=== PATIENT | male | born 1965 | race Caucasian/White ===

== ENCOUNTER 2017-02-08 22:29 | Inpatient (IN) | payer MEDICAID, MEDICARE ==
[~2017-02-08] VITALS: Ht 175.3 cm; Wt 123.9 kg
[2017-02-08] MEDS ORDERED: ONDANSETRON 2MG/ML, 2ML ONE (22:51)
[2017-02-08] MEDS ORDERED: MORPHINE SULFATE 4 MG/ML, 1ML ONE (22:51)
[2017-02-08] MEDS ORDERED: ONDANSETRON 2MG/ML, 2ML IVPush ONE (23:00)
[2017-02-08] MEDS ORDERED: MORPHINE SULFATE 4 MG/ML, 1ML IVPush PRN (23:00)
[2017-02-08] MEDS ORDERED: SODIUM CHLORIDE 0.9% 1,000ML IVBOLUS ONE (23:00)
[2017-02-08 23:56] LABS: BASOPHILS # (AUTO) 0.02 x10^3/uL (0-0.1); BASOPHILS % (AUTO) 0 % (0-1); EOSINOPHILS # (AUTO) 0.02 x10^3/uL (0-0.4); EOSINOPHILS % (AUTO) 0 % (1-7); LYMPHOCYTES # (AUTO) 0.92 x10^3/uL (1-3.4); LYMPHOCYTES % (AUTO) 6 % (22-44); MD NO; MEAN CORPUSCULAR HEMOGLOBIN 29.4 pg (27.5-34.5); MEAN CORPUSCULAR HGB CONC 33.4 g/dL (33.2-36.2); MEAN CORPUSCULAR VOLUME 88.1 fL (81-97); MEAN PLATELET VOLUME 8.2 fL (7.4-10.4); MONOCYTES # (AUTO) 0.51 x10^3/uL (0.2-0.8); MONOCYTES % (AUTO) 3 % (2-9); NEUTROPHILS # (AUTO) 14.06 x10^3/uL (1.8-6.8); NEUTROPHILS % (AUTO) 91 % (42-75); PLATELET COUNT 284 x10^3/uL (130-400); RED BLOOD COUNT 5.64 x10^6/uL (4.38-5.82); RED CELL DISTRIBUTION WIDTH 16.6 % (9.4-14.8)
[2017-02-09 00:05] LABS: ALBUMIN 3.6 g/dL (3.4-5.0); ANION GAP 16 mmol/L (5-15); CALCIUM 8.7 mg/dL (8.5-10.1); CHLORIDE 104 mmol/L (98-107)
[2017-02-09 00:11] LABS: ALANINE AMINOTRANSFERASE 115 U/L (12-78); ALKALINE PHOSPHATASE 174 U/L (45-117); BILIRUBIN,TOTAL 0.7 mg/dL (0.2-1.0); CREATININE 0.74 mg/dL (0.7-1.3); TROPONIN I < 0.015 ng/mL (0.000-0.045)
[2017-02-09] MEDS ORDERED: OMNIPAQUE 350 MG/ML, 100ML BOTTLE ONE (00:39)
[2017-02-09 01:02] LABS: MICROSCOPIC NOT IND
[2017-02-09 01:04] LABS: CULTURE INDICATED? NO
[2017-02-09] MEDS ORDERED: CEFOTETAN PMX 1GM/50ML 50 ML ONE (01:16)
[2017-02-09] MEDS ORDERED: SODIUM CHLORIDE 0.9% 1,000 ML IV ONE (01:20)
[2017-02-09] MEDS ORDERED: morphine SULFATE 10 MG/ML, 1ML ONE (01:27)
[2017-02-09] MEDS ORDERED: MORPHINE SULFATE 4 MG/ML, 1ML IVPush PRN (01:30)
[2017-02-09] MEDS ORDERED: ONDANSETRON 2MG/ML, 2ML IVPush PRN ×3 (01:30→04:00)
[2017-02-09] MEDS ORDERED: CEFOTETAN PMX 1GM/50ML 50 ML IV ONE (01:30)
[2017-02-09] MEDS ORDERED: EPINEPHRINE 1 MG/ML, 1ML ONE (01:55)
[2017-02-09] MEDS ORDERED: BUPIVACAINE/PF 0.5% ONE (01:55)
[2017-02-09] MEDS ORDERED: LIDOCAINE GEL 2%, 5ML ONE (02:11)
[2017-02-09] MEDS ORDERED: GLYCOPYRROLATE 0.2MG/1ML, 5ML ONE (02:15)
[2017-02-09] MEDS ORDERED: PROPOFOL 10 MG/ML, 20ML ONE (02:15)
[2017-02-09] MEDS ORDERED: DEXAMETHASONE 4 MG/ML, 1ML ONE (02:15)
[2017-02-09] MEDS ORDERED: CEFAZOLIN 1,000 MG ONE (02:15)
[2017-02-09] MEDS ORDERED: FENTANYL PF 250 MCG/5ML ONE (02:15)
[2017-02-09] MEDS ORDERED: ROCURONIUM 10 MG/ML,10ML ONE (02:15)
[2017-02-09] MEDS ORDERED: SUCCINYLCHOLINE 20 MG/ML, 10ML ONE (02:15)
[2017-02-09] MEDS ORDERED: NEOSTIGMINE 1 MG/ML, 10ML ONE (02:15)
[2017-02-09] MEDS ORDERED: ONDANSETRON 2MG/ML, 2ML ONE (02:15)
[2017-02-09] MEDS ORDERED: KETOROLAC 30 MG/1 ML ONE (02:17)
[2017-02-09] MEDS ORDERED: LORazepam 2 MG/ML, 1ML IVPush PRN (02:30)
[2017-02-09] MEDS ORDERED: MEPERIDINE/PF 25MG/0.5ML IVPush PRN (02:30)
[2017-02-09] MEDS ORDERED: ACETAMINOPHEN 325 MG TABLET PO PRN (02:30)
[2017-02-09] MEDS ORDERED: PROMETHAZINE 25 MG/ML, 1ML IV PRN (02:30)
[2017-02-09] MEDS ORDERED: METOCLOPRAMIDE 5 MG/ML, 2ML IV PRN (02:30)
[2017-02-09] MEDS ORDERED: ALBUTEROL/IPRATROPIUM 2.5MG/0.5MG, 3 ML NPPB PRN (02:30)
[2017-02-09] MEDS ORDERED: MIDAZOLAM 1 MG/ML, 2ML IV PRN (02:30)
[2017-02-09] MEDS ORDERED: LABETALOL 5MG/ML, 20ML IV PRN (02:30)
[2017-02-09] MEDS ORDERED: hydrALAzine 20 MG/ML, 1ML IV PRN (02:30)
[2017-02-09] MEDS ORDERED: OXYcodone 5 MG/5 ML ORAL.SOL UDC PO PRN (02:30)
[2017-02-09] MEDS ORDERED: DIAZEPAM 5 MG/ML, 2ML IVPush PRN (02:30)
[2017-02-09] MEDS ORDERED: HYDROmorphone 1 MG/ML, 1ML IV PRN (02:30)
[2017-02-09] MEDS ORDERED: METRONIDAZOLE PMX 500MG/100ML 100 ML ONE (03:00)
[2017-02-09] MEDS ORDERED: BUPIVACAINE/PF-EPI 0.5% 1:200K INFIL ONE (03:05)
[2017-02-09] MEDS ORDERED: FENTANYL PF 100 MCG/2ML ONE ×2 (03:37→04:46)
[2017-02-09] MEDS ORDERED: LABETALOL 5MG/ML, 20ML IVPush PRN (04:00)
[2017-02-09] MEDS ORDERED: ENALAPRILAT 1.25 MG/ML, 2ML IVPush PRN (04:00)
[2017-02-09] MEDS ORDERED: PROMETHAZINE 25 MG/ML, 1ML IM PRN (04:00)
[2017-02-09] MEDS ORDERED: DIAZEPAM 5 MG/ML, 10ML VIAL IV ONE (04:00)
[2017-02-09] MEDS ORDERED: LABETALOL 5MG/ML, 20ML ONE (04:03)
[2017-02-09] MEDS ORDERED: MEPERIDINE/PF 50 MG/ML ONE (04:03)
[2017-02-09] MEDS: FENTANYL PF 100 MCG/2ML IV PRN ×2 (04:48→04:55)
[2017-02-09 07:10] VITALS: BP 125/80
[2017-02-09] MEDS: POTASSIUM CHLORIDE 20 MEQ, MAGNESIUM SULFATE 1 GM, FOLIC ACID 1 MG, THIAMINE 100 MG, MV... IV SCH (08:24)
[2017-02-09] MEDS ORDERED: FLU VACC QS2017-18 (36MOS+) UP/PF 0.5 ML IM-VACC ONE (08:30)
[2017-02-09] MEDS ORDERED: PNEUMOCOCCAL 23 VACCINE IM-VACC ONE (08:30)
[2017-02-09] MEDS ORDERED: HYDROmorphone 2 MG/ML, 1ML ONE ×5 (08:31→23:00)
[2017-02-09] MEDS: HYDROmorphone 1 MG/ML, 1ML IVPush PRN ×5 (08:33→23:03)
[2017-02-09] MEDS: METRONIDAZOLE PMX 500MG/100ML 100 ML IVPB SCH ×2 (11:33→19:30)
[2017-02-09 12:50] VITALS: BP 128/81
[2017-02-09] MEDS: CEFOTETAN PMX 2GM/50ML 50 ML IV SCH (13:26)
[2017-02-09] MEDS: D5%-0.45NACL+KCL 20MEQ 1,000 ML IV SCH (17:07)
[2017-02-09] MEDS: ALUMINUM/MAG/SIMETHICONE 30 ML UDC PO PRN (18:03)
[2017-02-09 19:25] VITALS: BP 147/81
[2017-02-09] MEDS: FAMOTIDINE 20 MG/2 ML IVPush SCH (19:30)
[2017-02-10] MEDS: CEFOTETAN PMX 2GM/50ML 50 ML IV SCH ×2 (01:05→17:01)
[2017-02-10] MEDS: D5%-0.45NACL+KCL 20MEQ 1,000 ML IV SCH ×3 (01:05→23:49)
[2017-02-10 01:13] VITALS: BP 134/83
[2017-02-10] MEDS ORDERED: HYDROmorphone 2 MG/ML, 1ML ONE ×7 (01:15→18:20)
[2017-02-10] MEDS: HYDROmorphone 1 MG/ML, 1ML IVPush PRN ×6 (01:18→18:21)
[2017-02-10] MEDS: METRONIDAZOLE PMX 500MG/100ML 100 ML IVPB SCH ×3 (03:30→19:32)
[2017-02-10 06:37] LABS: BASOPHILS # (AUTO) 0.22 x10^3/uL (0-0.1); BASOPHILS % (AUTO) 2 % (0-1); EOSINOPHILS # (AUTO) 0.01 x10^3/uL (0-0.4); EOSINOPHILS % (AUTO) 0 % (1-7); LYMPHOCYTES # (AUTO) 1.64 x10^3/uL (1-3.4); LYMPHOCYTES % (AUTO) 11 % (22-44); MD NO; MEAN CORPUSCULAR HGB CONC 33.5 g/dL (33.2-36.2); MEAN CORPUSCULAR VOLUME 89.7 fL (81-97); MONOCYTES # (AUTO) 0.86 x10^3/uL (0.2-0.8); MONOCYTES % (AUTO) 6 % (2-9); NEUTROPHILS # (AUTO) 11.72 x10^3/uL (1.8-6.8); NEUTROPHILS % (AUTO) 81 % (42-75); PLATELET COUNT 241 x10^3/uL (130-400); RED BLOOD COUNT 4.91 x10^6/uL (4.38-5.82); RED CELL DISTRIBUTION WIDTH 16.8 % (9.4-14.8)
[2017-02-10] MEDS: POTASSIUM CHLORIDE 20 MEQ, MAGNESIUM SULFATE 1 GM, FOLIC ACID 1 MG, THIAMINE 100 MG, MV... IV SCH ×2 (08:00→23:49)
[2017-02-10 08:15] VITALS: BP 145/92
[2017-02-10] MEDS: FAMOTIDINE 20 MG/2 ML IVPush SCH ×2 (09:31→23:49)
[2017-02-10 15:25] VITALS: BP 137/91
[2017-02-10] MEDS: OXYcodone/APAP 7.5/325MG TABLET PO PRN ×2 (19:51→20:49)
[2017-02-10 21:13] VITALS: BP 165/94
[2017-02-11] MEDS: OXYcodone/APAP 7.5/325MG TABLET PO PRN ×4 (02:45→21:31)
[2017-02-11] MEDS: ALUMINUM/MAG/SIMETHICONE 30 ML UDC PO PRN (02:50)
[2017-02-11 03:26] VITALS: BP 127/75
[2017-02-11] MEDS: METRONIDAZOLE PMX 500MG/100ML 100 ML IVPB SCH ×4 (03:41→22:07)
[2017-02-11] MEDS: CEFOTETAN PMX 2GM/50ML 50 ML IV SCH ×2 (05:45→16:45)
[2017-02-11 06:06] LABS: BASOPHILS # (AUTO) 0.05 x10^3/uL (0-0.1); BASOPHILS % (AUTO) 1 % (0-1); EOSINOPHILS # (AUTO) 0.03 x10^3/uL (0-0.4); EOSINOPHILS % (AUTO) 0 % (1-7); LYMPHOCYTES # (AUTO) 1.51 x10^3/uL (1-3.4); LYMPHOCYTES % (AUTO) 14 % (22-44); MD NO; MEAN CORPUSCULAR HEMOGLOBIN 29.7 pg (27.5-34.5); MEAN CORPUSCULAR HGB CONC 33.2 g/dL (33.2-36.2); MEAN CORPUSCULAR VOLUME 89.4 fL (81-97); MEAN PLATELET VOLUME 8.3 fL (7.4-10.4); MONOCYTES # (AUTO) 1.07 x10^3/uL (0.2-0.8); MONOCYTES % (AUTO) 10 % (2-9); NEUTROPHILS # (AUTO) 7.86 x10^3/uL (1.8-6.8); NEUTROPHILS % (AUTO) 75 % (42-75); PLATELET COUNT 224 x10^3/uL (130-400); RED BLOOD COUNT 4.52 x10^6/uL (4.38-5.82); RED CELL DISTRIBUTION WIDTH 16.8 % (9.4-14.8)
[2017-02-11] MEDS: FAMOTIDINE 20 MG/2 ML IVPush SCH ×3 (08:37→22:07)
[2017-02-11 08:39] VITALS: BP 139/84
[2017-02-11 11:55] LABS: BASOPHILS # (AUTO) 0.07 x10^3/uL (0-0.1); BASOPHILS % (AUTO) 1 % (0-1); EOSINOPHILS # (AUTO) 0.04 x10^3/uL (0-0.4); EOSINOPHILS % (AUTO) 0 % (1-7); LYMPHOCYTES # (AUTO) 1.58 x10^3/uL (1-3.4); LYMPHOCYTES % (AUTO) 13 % (22-44); MD NO; MEAN CORPUSCULAR HEMOGLOBIN 29.4 pg (27.5-34.5); MEAN CORPUSCULAR HGB CONC 32.9 g/dL (33.2-36.2); MEAN CORPUSCULAR VOLUME 89.3 fL (81-97); MEAN PLATELET VOLUME 7.8 fL (7.4-10.4); MONOCYTES # (AUTO) 1.12 x10^3/uL (0.2-0.8); MONOCYTES % (AUTO) 9 % (2-9); NEUTROPHILS # (AUTO) 9.57 x10^3/uL (1.8-6.8); NEUTROPHILS % (AUTO) 77 % (42-75); PLATELET COUNT 243 x10^3/uL (130-400); RED CELL DISTRIBUTION WIDTH 17.1 % (9.4-14.8)
[2017-02-11 13:53] VITALS: BP 117/80
[2017-02-11 21:24] VITALS: BP 137/81
[2017-02-12] MEDS: OXYcodone/APAP 7.5/325MG TABLET PO PRN ×3 (03:10→09:26)
[2017-02-12 03:19] VITALS: BP 136/90
[2017-02-12] MEDS: CEFOTETAN PMX 2GM/50ML 50 ML IV SCH (04:40)
[2017-02-12] MEDS: METRONIDAZOLE PMX 500MG/100ML 100 ML IVPB SCH (05:24)
[2017-02-12 08:00] VITALS: BP 170/103
[2017-02-12] MEDS: FAMOTIDINE 20 MG/2 ML IVPush SCH (09:25)
[2017-02-12 10:34] VITALS: BP 148/93
[2017-02-12] MEDS ORDERED: OXYC-302 PO (11:46)
[2017-02-12] MEDS ORDERED: ONDA4TAB7 PO (11:47)
[2017-02-12] MEDS ORDERED: AMOX1TAB64 PO (11:47)
[2017-02-12] MEDS ORDERED: METR500T PO (11:48)
[2017-02-12] MEDS ORDERED: OXYC1TAB8 PO (11:51)
== END 2017-02-12 12:02 | disposition home or self-care (01) | DRG 340 ==
LOC: ED 23:58 → EDIP 02-09 01:21 → 4NOR 02-09 05:47
PROVIDERS: ADMIT Surgery; ATTEND Surgery
PROC: 0DTJ4ZZ Resection of Appendix, Percutaneous Endoscopic Approach (ICD-10-PCS; principal; 2017-02-09 02:00)
DX: K35.3 Acute appendicitis with localized peritonitis (principal); K76.0 Fatty (change of) liver, not elsewhere classified; N28.1 Cyst of kidney, acquired; F10.10 Alcohol abuse, uncomplicated; F12.90 Cannabis use, unspecified, uncomplicated; K57.90 Diverticulosis of intestine, part unspecified, without perforation or abscess without bleeding; K80.20 Calculus of gallbladder without cholecystitis without obstruction; Z23 Encounter for immunization
CPT/HCPCS: 36415; 74177; 76700; 80053; 80307; 81003; 83690; 84484; 85025; 88304; 90686; 90732; 96361; 96365; 96375; 96376; C1729; J0171; J0690; J1100; J1170; J1885; J2175; J2405; J2704; J2710; J3010; J3411; J3475; J3480; J3490; Q9967; G0479; J0330; J7030; J7121; S0028; S0074

== ENCOUNTER 2018-02-19 03:53 | Inpatient (IN) | payer MEDICARE ==
[~2018-02-19] VITALS: Ht 188 cm; Wt 134.3 kg
[~2018-02-19 03:53] MED LIST: AMOX1TAB64 PO; METR500T PO; ONDA4TAB7 PO; OXYC-302 PO; OXYC1TAB8 PO
--- NOTE | 2018-02-19 04:09 | NUR ---
Pt to room from lobby.
--- NOTE | 2018-02-19 04:18 | NUR ---
Pt reports having severe R mid abd pain, sharp. pt states it feels the same as when he had his appendix burst, appendix was taken out. Pt states pain started approx 12 hours ago, pt has tried ibuprofen and tylenol at home multiple times for pain with no relief. Pt states he drank a few beers to try and relief the pain with no success. pt reports nausea. Pt reports last normal BM x5 days ago, pt reports having a small hard stool this AM. states it was not normal for him. Pt anxious and rocking back and forth sitting up in bed, appearing to be in significant pain. no emesis at this time. Pt a/ox4, breathing labored r/t pain to abd. notified of pt severe painful state. awaiting orders.
[2018-02-19] MEDS ORDERED: ONDANSETRON 2MG/ML, 2ML IVPush ONE (04:30)
[2018-02-19] MEDS ORDERED: ONDANSETRON 2MG/ML, 2ML ONE (04:32)
[2018-02-19] MEDS ORDERED: MORPHINE SULFATE 4 MG/ML, 1ML ONE ×2 (04:32→05:40)
[2018-02-19] MEDS: MORPHINE SULFATE 4 MG/ML, 1ML IVPush PRN ×2 (04:36→05:49)
--- NOTE | 2018-02-19 04:36 | NUR ---
Pt recieved meds per orders, see emar.
--- NOTE | 2018-02-19 04:40 | NUR ---
Pt reports improvement of nausea and slight improvement of pain. sitting up in bed moving around as whats comfortable. will monitor pt.
[2018-02-19 04:52] LABS: MEAN CORPUSCULAR HEMOGLOBIN 29.2 pg (27.5-34.5); MEAN CORPUSCULAR HGB CONC 33.1 g/dL (33.2-36.2); MEAN CORPUSCULAR VOLUME 87.9 fL (81-97); MEAN PLATELET VOLUME 8.4 fL (7.4-10.4); PLATELET COUNT 233 x10^3/uL (130-400); RED BLOOD COUNT 5.36 x10^6/uL (4.38-5.82); RED CELL DISTRIBUTION WIDTH 15.5 % (9.4-14.8)
[2018-02-19 04:58] LABS: ALANINE AMINOTRANSFERASE 134 U/L (12-78); ALBUMIN 3.8 g/dL (3.4-5.0); ANION GAP 10 mmol/L (5-15); CALCIUM 8.9 mg/dL (8.5-10.1); CHLORIDE 104 mmol/L (98-107); CREATININE 1.01 mg/dL (0.7-1.3)
[2018-02-19 05:01] LABS: ALKALINE PHOSPHATASE 196 U/L (45-117); BILIRUBIN,TOTAL 4.1 mg/dL (0.2-1.0); TOTAL PROTEIN 7.8 g/dL (6.4-8.2)
[2018-02-19 05:16] LABS: BASOPHILS # (AUTO) 0.04 x10^3/uL (0-0.1); BASOPHILS % (AUTO) 0 % (0-1); EOSINOPHILS # (AUTO) 0.03 x10^3/uL (0-0.4); EOSINOPHILS % (AUTO) 0 % (1-7); LYMPHOCYTES # (AUTO) 0.83 x10^3/uL (1-3.4); LYMPHOCYTES % (AUTO) 6 % (22-44); MD SCAN; MONOCYTES # (AUTO) 0.18 x10^3/uL (0.2-0.8); MONOCYTES % (AUTO) 1 % (2-9); NEUTROPHILS # (AUTO) 12.62 x10^3/uL (1.8-6.8); NEUTROPHILS % (AUTO) 92 % (42-75)
--- NOTE | 2018-02-19 05:36 | NUR ---
Pt having emesis, appears to be in a lot of pain. Provider notified. pt to have second dose of morphine and phenergan.
--- NOTE | 2018-02-19 05:38 | NUR ---
x-ray delay: pt condition
[2018-02-19] MEDS ORDERED: PROMETHAZINE 25 MG/ML, 1ML ONE (05:39)
--- NOTE | 2018-02-19 05:47 | NUR ---
ULTRASOUND DELAY...PT NOT ABLE TO TOLERATE EXAM AT THIS TIME aa
--- NOTE | 2018-02-19 05:49 | NUR ---
Pt recieved meds per orders, see emar. Pt continues to have emesis, all a light brown liquid.
[2018-02-19] MEDS ORDERED: PROMETHAZINE 25 MG/ML, 1ML IM ONE (06:00)
--- NOTE | 2018-02-19 06:00 | NUR ---
Pt up to use urinal.
--- NOTE | 2018-02-19 06:05 | NUR ---
Pt reports slight nausea and pain relief after meds given. Pt asking for ice chips, pt educated about NPO when having emesis, pt verbalized understanding. pt not having emesis for a few minutes, will check back with pt for relief assessment. urine sent to lab.
--- NOTE | 2018-02-19 06:24 | NUR ---
Emesis cleaned. no emesis since last check with pt. Pt continues to have relief from N/V, pt reports continues slight relief of pain to R abd. US at bedside at this time.
[2018-02-19 06:26] LABS: MICROSCOPIC AUTO
[2018-02-19 06:28] LABS: CULTURE INDICATED? YES
--- NOTE | 2018-02-19 06:48 | NUR ---
Pt reports continued improvement of nausea and pain, pain 4/10 at this time. No emesis since last check. Pt to xray.
--- NOTE | 2018-02-19 06:56 | NUR ---
Report to Jostin GRAHAM.
[2018-02-19] MEDS ORDERED: SODIUM CHLORIDE FLUSH 10ML SYR IVF PRN (07:30)
--- NOTE | 2018-02-19 08:11 | NUR ---
SBAR TO DONTE GRAHAM VIA TELEPHONE
[2018-02-19] MEDS ORDERED: THIAMINE 100 MG in SODIUM CHLORIDE 0.9% 50 ML IV SCH (08:30)
[2018-02-19] MEDS ORDERED: DOCUSATE 100 MG CAPSULE PO PRN (08:30)
[2018-02-19] MEDS ORDERED: BISACODYL 10 MG SUPP PR PRN (08:30)
[2018-02-19] MEDS ORDERED: ONDANSETRON ODT 4 MG PO PRN (08:30)
[2018-02-19] MEDS ORDERED: LORazepam 2 MG/ML, 1ML IVPush PRN (08:30)
[2018-02-19] MEDS ORDERED: POLYETHYLENE GLYCOL 17 GM PACKET PO PRN (08:30)
[2018-02-19 08:37] VITALS: BP 111/74
[2018-02-19] MEDS: FAMOTIDINE 20 MG/2 ML IVPush SCH ×2 (09:25→20:51)
[2018-02-19] MEDS: ONDANSETRON 2MG/ML, 2ML IVPush PRN ×2 (09:55→16:34)
[2018-02-19] MEDS: D5%-0.45NACL+KCL 20MEQ 1,000 ML IV SCH (10:42)
[2018-02-19] MEDS: PIPERACILLIN/TAZO/PMX 3.375GM 50 ML IV SCH ×2 (13:15→19:10)
[2018-02-19 13:21] VITALS: BP 105/68
[2018-02-19] MEDS ORDERED: ACETAMINOPHEN 325 MG SUPP PR PRN (13:30)
[2018-02-19] MEDS: MAGNESIUM SULFATE 1 GM, MVI ADULT 10 ML, THIAMINE 200 MG, FOLIC ACID 1 MG in SODIUM CHL... IV SCH (14:41)
[2018-02-19 16:57] VITALS: BP 117/70
[2018-02-19 19:45] VITALS: BP 120/81
[2018-02-20] MEDS: PIPERACILLIN/TAZO/PMX 3.375GM 50 ML IV SCH ×4 (01:11→23:03)
[2018-02-20] MEDS: ACETAMINOPHEN 500 MG TABLET PO PRN (01:13)
[2018-02-20 01:14] VITALS: BP 128/83
[2018-02-20] MEDS: ONDANSETRON 2MG/ML, 2ML IVPush PRN ×2 (04:03→14:35)
[2018-02-20] MEDS: morphine SULFATE 10 MG/ML, 1ML IVPush PRN ×3 (04:03→23:02)
[2018-02-20 04:42] LABS: MEAN CORPUSCULAR HEMOGLOBIN 29.1 pg (27.5-34.5); MEAN CORPUSCULAR HGB CONC 32.9 g/dL (33.2-36.2); MEAN CORPUSCULAR VOLUME 88.5 fL (81-97); MEAN PLATELET VOLUME 8.5 fL (7.4-10.4); PLATELET COUNT 177 x10^3/uL (130-400); RED BLOOD COUNT 4.76 x10^6/uL (4.38-5.82); RED CELL DISTRIBUTION WIDTH 16.4 % (9.4-14.8)
[2018-02-20 04:44] LABS: ALANINE AMINOTRANSFERASE 187 U/L (12-78); ALBUMIN 2.9 g/dL (3.4-5.0); ANION GAP 8 mmol/L (5-15); CALCIUM 8.2 mg/dL (8.5-10.1); CHLORIDE 106 mmol/L (98-107); CREATININE 1.16 mg/dL (0.7-1.3)
[2018-02-20 04:46] LABS: ALKALINE PHOSPHATASE 159 U/L (45-117); BILIRUBIN,TOTAL 6.9 mg/dL (0.2-1.0); TOTAL PROTEIN 6.4 g/dL (6.4-8.2)
[2018-02-20 05:13] LABS: BASOPHILS # (AUTO) 0.01 x10^3/uL (0-0.1); BASOPHILS % (AUTO) 0 % (0-1); EOSINOPHILS # (AUTO) 0.06 x10^3/uL (0-0.4); EOSINOPHILS % (AUTO) 0 % (1-7); LYMPHOCYTES # (AUTO) 1.49 x10^3/uL (1-3.4); LYMPHOCYTES % (AUTO) 9 % (22-44); MD SCAN; MONOCYTES # (AUTO) 0.89 x10^3/uL (0.2-0.8); MONOCYTES % (AUTO) 5 % (2-9); NEUTROPHILS # (AUTO) 14.46 x10^3/uL (1.8-6.8); NEUTROPHILS % (AUTO) 86 % (42-75)
[2018-02-20] MEDS: D5%-0.45NACL+KCL 20MEQ 1,000 ML IV SCH ×3 (06:09→16:14)
[2018-02-20 07:01] VITALS: BP 112/63
[2018-02-20] MEDS: FAMOTIDINE 20 MG/2 ML IVPush SCH ×2 (09:00→23:03)
[2018-02-20 14:42] VITALS: BP 126/79
[2018-02-20 15:15] LABS: INTERNATIONAL NORMALIZED RATIO 1.12 (0.93-1.1); PROTHROMBIN TIME 11.8 Seconds (9.6-11.5)
[2018-02-20] MEDS: MAGNESIUM SULFATE 1 GM, MVI ADULT 10 ML, THIAMINE 200 MG, FOLIC ACID 1 MG in SODIUM CHL... IV SCH (16:13)
[2018-02-20] MEDS ORDERED: BUPIVACAINE/PF-EPI 0.5% 1:200K ONE (18:27)
[2018-02-20] MEDS ORDERED: ROCURONIUM 10MG/ML,5ML ONE (20:16)
[2018-02-20] MEDS ORDERED: LIDOCAINE 2% 100MG/5ML SYRINGE ONE (20:16)
[2018-02-20] MEDS ORDERED: NEOSTIGMINE 1 MG/ML, 10ML ONE (20:16)
[2018-02-20] MEDS ORDERED: PROPOFOL 10 MG/ML, 20ML ONE (20:16)
[2018-02-20] MEDS ORDERED: GLYCOPYRROLATE 0.2MG/1ML, 5ML ONE (20:16)
[2018-02-20] MEDS ORDERED: SUCCINYLCHOLINE 20 MG/ML, 10ML ONE (20:16)
[2018-02-20] MEDS ORDERED: CEFOTETAN 2 GM ONE (20:16)
[2018-02-20] MEDS ORDERED: FENTANYL PF 100 MCG/2ML ONE ×3 (20:18→21:42)
[2018-02-20] MEDS ORDERED: MIDAZOLAM 1 MG/ML, 2ML ONE (20:27)
[2018-02-20] MEDS ORDERED: OMNIPAQUE 350 MG/ML, 50 ML BOTTLE ONE (20:30)
[2018-02-20] MEDS ORDERED: BUPIVACAINE/PF-EPI 0.5% 1:200K IM ONE (20:30)
[2018-02-20] MEDS ORDERED: OMNIPAQUE 350 MG/ML, 50 ML BOTTLE IV ONE (20:46)
[2018-02-20] MEDS ORDERED: LABETALOL 5MG/ML, 20ML IV PRN (21:00)
[2018-02-20] MEDS ORDERED: hydrALAzine 20 MG/ML, 1ML IV PRN (21:00)
[2018-02-20] MEDS ORDERED: HYDROmorphone 2 MG/ML, 1ML IVPush PRN (21:00)
[2018-02-20] MEDS ORDERED: METOCLOPRAMIDE 5 MG/ML, 2ML IV PRN (21:00)
[2018-02-20] MEDS ORDERED: MEPERIDINE/PF 25MG/0.5ML IVPush PRN (21:00)
[2018-02-20] MEDS ORDERED: OXYcodone 5 MG/5 ML ORAL.SOL UDC PO PRN (21:00)
[2018-02-20] MEDS ORDERED: THROMBIN 5,000 UNIT VIAL TP ONE ×2 (21:12→21:14)
[2018-02-20] MEDS ORDERED: PROMETHAZINE 25 MG/ML, 1ML ONE (21:42)
[2018-02-20] MEDS: FENTANYL PF 100 MCG/2ML IV PRN ×2 (21:43→21:50)
[2018-02-20] MEDS ORDERED: LORazepam 2 MG/ML, 1ML ONE (21:49)
[2018-02-20] MEDS: LORazepam 2 MG/ML, 1ML IVPush PRN ×2 (21:50→22:00)
[2018-02-20] MEDS ORDERED: PROMETHAZINE 25 MG/ML, 1ML IV PRN (22:00)
[2018-02-20] MEDS ORDERED: morphine SULFATE 10 MG/ML, 1ML IVPush PRN (22:00)
[2018-02-20] MEDS ORDERED: OXYcodone 5 MG/5 ML ORAL.SOL UDC ONE ×2 (22:04→22:43)
[2018-02-20] MEDS ORDERED: hydrALAzine 20 MG/ML, 1ML ONE (22:07)
[2018-02-20] MEDS ORDERED: MEPERIDINE/PF 25MG/0.5ML ONE (22:20)
[2018-02-21 00:20] VITALS: BP 106/64
[2018-02-21] MEDS: morphine SULFATE 10 MG/ML, 1ML IVPush PRN ×3 (01:13→19:48)
[2018-02-21] MEDS: ONDANSETRON 2MG/ML, 2ML IVPush PRN ×2 (01:58→19:47)
[2018-02-21 04:46] LABS: MEAN CORPUSCULAR HEMOGLOBIN 29.5 pg (27.5-34.5); MEAN CORPUSCULAR HGB CONC 33.3 g/dL (33.2-36.2); MEAN CORPUSCULAR VOLUME 88.8 fL (81-97); MEAN PLATELET VOLUME 8.7 fL (7.4-10.4); PLATELET COUNT 172 x10^3/uL (130-400); RED BLOOD COUNT 4.76 x10^6/uL (4.38-5.82); RED CELL DISTRIBUTION WIDTH 17.1 % (9.4-14.8)
[2018-02-21 04:55] LABS: ALANINE AMINOTRANSFERASE 187 U/L (12-78); ALBUMIN 2.9 g/dL (3.4-5.0); ANION GAP 6 mmol/L (5-15); BILIRUBIN, DIRECT 2.8 mg/dL (0.1-0.2); CHLORIDE 104 mmol/L (98-107); CREATININE 1.07 mg/dL (0.7-1.3)
[2018-02-21 05:04] LABS: ALKALINE PHOSPHATASE 166 U/L (45-117); BILIRUBIN,TOTAL 3.5 mg/dL (0.2-1.0); TOTAL PROTEIN 6.7 g/dL (6.4-8.2)
[2018-02-21 05:20] LABS: BASOPHILS # (AUTO) 0.01 x10^3/uL (0-0.1); BASOPHILS % (AUTO) 0 % (0-1); EOSINOPHILS % (AUTO) 0 % (1-7); LYMPHOCYTES # (AUTO) 0.52 x10^3/uL (1-3.4); LYMPHOCYTES % (AUTO) 4 % (22-44); MD SCAN; MONOCYTES % (AUTO) 5 % (2-9); NEUTROPHILS # (AUTO) 12.17 x10^3/uL (1.8-6.8); NEUTROPHILS % (AUTO) 91 % (42-75)
[2018-02-21] MEDS: PIPERACILLIN/TAZO/PMX 3.375GM 50 ML IV SCH ×3 (05:23→17:37)
[2018-02-21] MEDS: D5%-0.45NACL+KCL 20MEQ 1,000 ML IV SCH (05:58)
[2018-02-21 06:59] VITALS: BP 115/76
[2018-02-21] MEDS: FAMOTIDINE 20 MG/2 ML IVPush SCH ×2 (07:52→19:47)
[2018-02-21] MEDS: OXYcodone 5 MG/5 ML ORAL.SOL UDC PO PRN ×2 (10:57→17:05)
[2018-02-21] MEDS ORDERED: VANCOMYCIN PER PHARMACY MC PRN (13:30)
[2018-02-21 14:22] VITALS: BP 112/68
[2018-02-21] MEDS ORDERED: PHARMACOKINETIC CONSULTATION MC ONE (14:30)
[2018-02-21] MEDS ORDERED: PHARMACOKINETIC MONITORING MC PRN (14:30)
[2018-02-21] MEDS: VANCOMYCIN 2,200 MG in SODIUM CHLORIDE 0.9% 500 ML IV SCH (14:44)
[2018-02-21] MEDS: MAGNESIUM SULFATE 1 GM, MVI ADULT 10 ML, THIAMINE 200 MG, FOLIC ACID 1 MG in SODIUM CHL... IV SCH (18:18)
[2018-02-21 19:35] VITALS: BP 107/72
[2018-02-21] MEDS: PIPERACILLIN/TAZO 3.375 GM in DEXTROSE 5% 50 ML IV SCH (23:52)
[2018-02-22 00:42] VITALS: BP 141/80
[2018-02-22] MEDS: VANCOMYCIN 2,200 MG in SODIUM CHLORIDE 0.9% 500 ML IV SCH (02:32)
[2018-02-22 04:57] LABS: BASOPHILS # (AUTO) 0.03 x10^3/uL (0-0.1); BASOPHILS % (AUTO) 0 % (0-1); EOSINOPHILS # (AUTO) 0.06 x10^3/uL (0-0.4); EOSINOPHILS % (AUTO) 1 % (1-7); LYMPHOCYTES # (AUTO) 1.56 x10^3/uL (1-3.4); LYMPHOCYTES % (AUTO) 16 % (22-44); MD NO; MEAN CORPUSCULAR HEMOGLOBIN 29.8 pg (27.5-34.5); MEAN CORPUSCULAR HGB CONC 33.7 g/dL (33.2-36.2); MEAN CORPUSCULAR VOLUME 88.5 fL (81-97); MEAN PLATELET VOLUME 8.6 fL (7.4-10.4); MONOCYTES # (AUTO) 1.09 x10^3/uL (0.2-0.8); MONOCYTES % (AUTO) 11 % (2-9); NEUTROPHILS # (AUTO) 6.95 x10^3/uL (1.8-6.8); NEUTROPHILS % (AUTO) 72 % (42-75); PLATELET COUNT 150 x10^3/uL (130-400); RED BLOOD COUNT 4.47 x10^6/uL (4.38-5.82); RED CELL DISTRIBUTION WIDTH 17.2 % (9.4-14.8)
[2018-02-22] MEDS: PIPERACILLIN/TAZO 3.375 GM in DEXTROSE 5% 50 ML IV SCH ×2 (05:02→11:18)
[2018-02-22] MEDS: morphine SULFATE 10 MG/ML, 1ML IVPush PRN (05:02)
[2018-02-22 05:04] LABS: ALBUMIN 2.5 g/dL (3.4-5.0); ANION GAP 5 mmol/L (5-15); CALCIUM 7.8 mg/dL (8.5-10.1); CHLORIDE 105 mmol/L (98-107)
[2018-02-22 05:08] LABS: ALANINE AMINOTRANSFERASE 137 U/L (12-78); ALKALINE PHOSPHATASE 131 U/L (45-117); BILIRUBIN, DIRECT 1.3 mg/dL (0.1-0.2); BILIRUBIN,TOTAL 2.3 mg/dL (0.2-1.0); TOTAL PROTEIN 6.2 g/dL (6.4-8.2)
[2018-02-22 07:19] VITALS: BP 134/94
[2018-02-22] MEDS ORDERED: D5%-0.45NACL+KCL 20MEQ 1,000 ML IV SCH (08:27)
[2018-02-22] MEDS: FAMOTIDINE 20 MG/2 ML IVPush SCH (08:47)
[2018-02-22] MEDS: ACETAMINOPHEN 500 MG TABLET PO PRN (08:47)
[2018-02-22] MEDS: OXYcodone 5 MG/5 ML ORAL.SOL UDC PO PRN (08:47)
[2018-02-22] MEDS ORDERED: LEVO750T26 PO (11:50)
[2018-02-22 12:56] VITALS: BP 109/74
== END 2018-02-22 14:00 | disposition left against medical advice (07) | DRG 853 ==
LOC: ED 04:43 → EDIP 07:26 → 3NW 08:30
PROVIDERS: ADMIT Hospitalist; ATTEND Hospitalist
PROC: 0FN Hepatobiliary System and Pancreas, Release (ICD-10-PCS; 2018-02-19)
PROC: BF121ZZ Fluoroscopy of Gallbladder using Low Osmolar Contrast (ICD-10-PCS; 2018-02-20)
PROC: 0FT44ZZ Resection of Gallbladder, Percutaneous Endoscopic Approach (ICD-10-PCS; principal; 2018-02-20 17:30)
DX: A41.9 Sepsis, unspecified organism (principal); J96.01 Acute respiratory failure with hypoxia; K80.00 Calculus of gallbladder with acute cholecystitis without obstruction; E86.0 Dehydration; F10.129 Alcohol abuse with intoxication, unspecified; B19.20 Unspecified viral hepatitis C without hepatic coma; E87.6 Hypokalemia; F12.90 Cannabis use, unspecified, uncomplicated; F17.200 Nicotine dependence, unspecified, uncomplicated; K66.0 Peritoneal adhesions (postprocedural) (postinfection); K70.30 Alcoholic cirrhosis of liver without ascites; K76.0 Fatty (change of) liver, not elsewhere classified; Z53.21 Procedure and treatment not carried out due to patient leaving prior to being seen by health care provider; K82.8 Other specified diseases of gallbladder; N28.1 Cyst of kidney, acquired; Z80.1 Family history of malignant neoplasm of trachea, bronchus and lung; Z72.89 Other problems related to lifestyle; Z80.41 Family history of malignant neoplasm of ovary; Z90.49 Acquired absence of other specified parts of digestive tract
CPT/HCPCS: 36415; 74021; 74181; 74300; 76700; 78227; 80048; 80053; 80074; 80076; 80307; 81001; 83690; 85025; 85610; 86140; 87040; 87077; 87086; 87186; 87521; 88304; 96372; 96374; 96375; G0378; J2175; J2250; J2405; J2543; J2550; J2704; J2710; J3010; J3370; J3411; J3475; J3490; Q0162; Q9967; A9537; C9898; J0330; J0360; J2060; J2270; J3480; J7040